=== PATIENT | male | born 1950 | race Caucasian/White ===

== ENCOUNTER 2017-12-16 02:49 | Inpatient (IN) ==
[2017-12-16] MEDS ORDERED: Levofloxacin 500 MG/100 ML 500 MG/100 ML BAG IVPB ONE (05:11)
[2017-12-16] MEDS ORDERED: D5% in Lactated Ringers 1,000 ML IVC SCH (05:15)
[2017-12-16] MEDS: Ondansetron 4 MG/2 ML VIAL IVP PRN ×2 (05:29→14:24)
[2017-12-16] MEDS: *HR* FentaNYL (PF) 100 MCG/2 ML VIAL IVP PRN ×3 (08:56→16:31)
--- NOTE | 2017-12-16 09:34 | General Surg History&Physical ---
Addendum entered and electronically signed by Chrissie Adhikari CNP 12/16/17 11: 32: 1. Incidental finding of renal mass vs cyst (Us recommended). We did place orders for renal ultrasound. 2. EKG SB with 1st degrees AV block, old inferior IN. Cardiology consult already placed. Management per cardiology Original Note: <Chrissie Adhikari - Last Filed: 12/16/17 10:02> Date of Encounter: 12/16/17 Time of Encounter: 09:34 Assessment and Plan (1) Acute appendicitis Current Visit: Yes Status: Acute The assessment and plan as outlined above was discussed with the patient and/or family members who expressed understanding and agreement. All questions were answered. His hospital course thus far has included laboratory studies which revealed a normal white blood cell count, mildly elevated lipase at 100, normal liver function, normal creatinine, elevated glucose, a CT of the abdomen and pelvis with no IV or oral contrast revealed mildly dilated appendix, mild periappendiceal fat stranding, no free air or fluid. Retroperitoneal lymph nodes are likely reactive, and by basilar atelectasis. His history and exam is consistent with acute appendicitis. We will plan for urgent surgical intervention in the next 24 to 48 hours for a laparoscopic appendectomy. Recommendations, risks, and benefits have been reviewed with the patient and he is agreeable to proceed. We will consult cardiology for preoperative risk stratification (and to establish care) in the setting of patient reports history of IN and is unable to quantify his YRN of activity. Maintain NPO, continue IV antibiotics, repeat a.m. labs, continue IV fluids Aggressive pulmonary toileting in the pre-and postoperative setting Qualifiers: Acute appendicitis type: unspecified acute appendicitis type Qualified Code (s): K35.80 - Unspecified acute appendicitis (2) Smoking history Current Visit: Yes Status: Acute The assessment and plan as outlined above was discussed with the patient and/or family members who expressed understanding and agreement. All questions were answered. Smoking cessation is strongly advised incentive spirometry 10 times Q hour while awake schedule duonebs and respiratory consult for aggressive pulmonary toileting in the pre-and postoperative setting (3) ASHD (arteriosclerotic heart disease) Current Visit: Yes Status: Acute The assessment and plan as outlined above was discussed with the patient and/or family members who expressed understanding and agreement. All questions were answered. EKG BNP CXR consult cardiology (4) Elevated glucose Current Visit: Yes Status: Acute The assessment and plan as outlined above was discussed with the patient and/or family members who expressed understanding and agreement. All questions were answered. NPO Q6 Accu check with sliding scale coverage hemoglobin A-1 C repeat a.m. labs (5) Productive cough Current Visit: Yes Status: Acute The assessment and plan as outlined above was discussed with the patient and/or family members who expressed understanding and agreement. All questions were answered. See assessment and plan above will obtain chest x-ray PA and LAT given fever and productive cough to rule out pneumonia History of Present Illness Chief complaint: Umbilical and RLQ pain HPI: Mr. Rodriguez is a 67 year old male who has a past medical history of HTN, IN ( unknown timing or location), DM, CKD, smoking 1ppd for 40 years, and a surgical history of cholecystectomy. He is somewhat of a poor historian, stating, "I haven't been to the doctor in 20 years. There is nothing wrong with me." He states he was previously told he had a heart attack, had high blood pressure, diabetes, and kidney disease, but "all these have went away and there's nothing wrong with me. He reports he takes a baby aspirin daily. 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 He states he is mostly sedentary at his job, said that at best, and is unable to quantify the amount of activity he is able to complete in a day. He presented on 12/16/2017 for a less than 24 hour history of abdominal discomfort around the belly button. He states that started at the bellybutton, felt sharp, and has since migrated to the right lower quadrant and the bellybutton. Pain is 7 out of 10 and has no alleviating factors. He states its aggravated by coughing or movement. He reports fevers with the Tmax of 100 , associated nausea but no vomiting, denies urinary signs or symptoms, denies changes in bowel habits, constipation, or diarrhea. He denies chest pain, shortness of breath, but endorses a productive cough with thick yellow sputum. He reports some shortness of breath with activity but is unable to state how much activity he is able to complete before he has shortness of breath. His hospital course thus far has included laboratory studies which revealed a normal white blood cell count, mildly elevated lipase at 100, normal liver function, normal creatinine, elevated glucose, a CT of the abdomen and pelvis with no IV or oral contrast revealed mildly dilated appendix, mild periappendiceal fat stranding, no free air or fluid. Retroperitoneal lymph nodes are likely reactive, and by basilar atelectasis. Past Med Surg Social Fam HX - Past Medical History Source: patient, old records reviewed Medical history: no medical history, COPD, hypertension, myocardial infarction, renal disease Psychiatric history: no psych history - Past Surgical History Surgical History: cholecystectomy - Social History Smoking Status: Current every day smoker Packs per day: 1 ppd 40 years Smokeless Tobacco Status: No Alcohol use: none Drug use: none Occupational status: employed Current living situation: Home - Independent Activity Level: Independent ambulation Recent Out of Country Travel Within the Last 8 Weeks: No Exposure or Possible Exposure to Illness During Travel: No - Family History Father Hx Family Cancer: Yes (colon) Medications and Allergies Aspirin 325 mg PO DAILY 12/16/17 [History] 3 Allergy/AdvReac Type Severity Reaction Status Date / Time Penicillins Allergy Hives Verified 12/16/17 09:22 Review of Systems All systems PM: reviewed and no additional remarkable complaints except as stated All systems PM: The remainder of the systems were reviewed and are negative General Surgery Exam Initial Vital Signs Temp Pulse Resp BP Pulse Ox 97.6 F 55 18 147/81 92 12/16/17 04:20 12/16/17 04:20 12/16/17 04:20 12/16/17 04:20 12/16/17 04:20 VITAL SIGNS: Reviewed. See [facility] GENERAL: In no apparent distress. HEENT: Normocephalic, atraumatic, pupils are equal and reactive, extraocular motions intact, oropharynx is pink and moist, there is no neck adenopathy or JVD noted. CHEST/RESPIRATORY: The thorax is free from signs of trauma. Lung sounds: decreased respiratory effort, decreased breath sounds, course breath sounds CARDIAC: distant heart tones, Regular rate and rhythm. Normal S1 and S2, without murmurs, gallops, or rubs. VASCULAR: No Edema. 2+ peripheral pulses. ABDOMEN: obese, soft, active bowel sounds, positive McBurney sign, positive tenderness in the periUmbilical area, negative obturator and psoas MUSCULOSKELETAL: Good range of motion of all major joints. Extremities without clubbing, cyanosis or edema. NEUROLOGIC EXAM: Alert and oriented x 3. Speech normal. Follows commands. PSYCHIATRIC: Mood normal. SKIN: No rash or lesions. Results - Labs All other labs normal. - Imaging CT scan - abdomen: report reviewed CT scan - pelvis: report reviewed <Barry Chew - Last Filed: 12/16/17 15:35> Date of Encounter: 12/16/17 History of Present Illness HPI: Mr. Rodriguez is a 67 year old male Review of Systems All systems PM: The remainder of the systems were reviewed and are negative General Surgery Exam Initial Vital Signs Temp Pulse Resp BP Pulse Ox 97.6 F 55 18 147/81 92 12/16/17 04:20 12/16/17 04:20 12/16/17 04:20 12/16/17 04:20 12/16/17 04:20 Results - Labs 12/16/17 11:01 Abnormal lab results Sodium 133 mEq/L (136-145) L 12/16/17 11:01 Glucose 121 mg/dL (70-105) H 12/16/17 11:01 Hemoglobin A1c 5.8 % (-5.6) H 12/16/17 11:00 Calculated Osmolality 276 (280-300) L 12/16/17 11:01 Calcium 8.5 mg/dL (8.6-10.3) L 12/16/17 11:01 B-Natriuretic Peptide 149 pg/mL (Less than 100) H 12/16/17 11:00 Diabetes panel 12/16/17 12/16/17 Range/Units 11:00 11:01 Sodium 133 L (136-145) mEq/L Potassium 4.1 (3.5-5.1) mEq/L Chloride 105 (98-107) mEq/L Carbon Dioxide 25 (23-29) mEq/L BUN 10 (8-23) mg/dL Creatinine 0.80 (0.70-1.30) mg/dL Glucose 121 H (70-105) mg/dL Hemoglobin A1c 5.8 H ( - 5.6) % Calcium 8.5 L (8.6-10.3) mg/dL Calcium panel 12/16/17 Range/Units 11:01 Calcium 8.5 L (8.6-10.3) mg/dL Pituitary panel 12/16/17 Range/Units 11:01 Sodium 133 L (136-145) mEq/L Potassium 4.1 (3.5-5.1) mEq/L Chloride 105 (98-107) mEq/L Carbon Dioxide 25 (23-29) mEq/L BUN 10 (8-23) mg/dL Creatinine 0.80 (0.70-1.30) mg/dL Glucose 121 H (70-105) mg/dL Calcium 8.5 L (8.6-10.3) mg/dL Adrenal panel 12/16/17 Range/Units 11:01 Sodium 133 L (136-145) mEq/L Potassium 4.1 (3.5-5.1) mEq/L Chloride 105 (98-107) mEq/L Carbon Dioxide 25 (23-29) mEq/L BUN 10 (8-23) mg/dL Creatinine 0.80 (0.70-1.30) mg/dL Glucose 121 H (70-105) mg/dL Calcium 8.5 L (8.6-10.3) mg/dL All other labs normal. - Attending Attestation I have personally seen and examined the patient. I have reviewed pertinent labs , imaging, progress notes, including this one. I agree with the above assessment and plan and wish to include the following... 67M with acute appendicitis; discussed with patient the steps of the procedure. He is familiar with laparosocpy, so he had no questions; Also with an incidental finding of a renal mass. Contacted urology and will plan for follow up with them when he presents to the office for follow;
[2017-12-16] MEDS ORDERED: OXYCODONE Oral CONC 10 MG/0.5 ML ORAL.SYG SL PRN ×2 (10:50)
[2017-12-16] MEDS ORDERED: *HR* Promethazine 25 MG/ML VIAL IVP PRN (10:50)
[2017-12-16] MEDS ORDERED: D5% in Water 1,000 ML IVC PRN (10:53)
[2017-12-16] MEDS ORDERED: Dextrose Gel 15 GM/37.5 ML TUBE PO PRN ×2 (10:53)
[2017-12-16] MEDS ORDERED: *HR* Dextrose 50 % in Water (Syg) 50 ML SYRINGE IVP PRN (10:53)
[2017-12-16] MEDS ORDERED: 0.9 % Sodium Chloride 1,000 ML IVC SCH (11:00)
[2017-12-16 11:23] LABS: Estimated Average Glucose 120 mg/dl; Hemoglobin A1C 5.8 %
[2017-12-16 11:34] LABS: BUN/Creatinine Ratio 13 (6-26); Blood Urea Nitrogen 10 mg/dL (8-23); Calcium 8.5 mg/dL (8.6-10.3); Carbon Dioxide 25 mEq/L (23-29); Chloride 105 mEq/L (98-107); Glucose 121 mg/dL (70-105); Osmolality,Calculated 276 (280-300); Potassium 4.1 mEq/L (3.5-5.1); Sodium 133 mEq/L (136-145); eGFR For African Americans > 60 (> 60); eGFR For Non-African Americans > 60 (> 60)
--- NOTE | 2017-12-16 12:23 | Cardiology Consult Note ---
<Aquiles Alfaro - Last Filed: 12/16/17 12:34> Date of Encounter: 12/16/17 Time of Encounter: 12:00 Assessment and Plan (1) Pre-operative cardiovascular examination Current Visit: Yes Status: Acute Planning for urgent appendectomy today for acute appendicitis. Unclear cardiac history. Reports NJ 30 years ago. No cardiac intervention at that time. No cardiology f/u. Denies recent cardiac symptoms. C/o severe abdominal pain. EKG shows NSR with no acute T/ST changes. He can complete 4 mets of activity without symptoms. Discussed with Dr. Felipe. Ideally we would do further non-invasive testing prior to a non urgent surgery. Since acute appendicitis requires emergent intervention no further testing will be completed per guidelines. He is moderate risk for procedure. (2) Acute appendicitis Current Visit: Yes Status: Acute Qualifiers: Acute appendicitis type: unspecified acute appendicitis type Qualified Code (s): K35.80 - Unspecified acute appendicitis Discussion w patient/family: The assessment and plan as outlined above was discussed with the patient and/or family members who expressed understanding and agreement. All questions were answered. Thank you for involving us in the care of your patient. Please call with any questions. History of Present Illness Consult date: 12/16/17 Requesting physician: Chrissie Adhikari Consult reason: pre-operative cardiovascular risk Chief complaint: abdominal pain History of present illness: Mr. Rodriguez is a 67 year old male with history of tobacco abuse, COPD, and PVD who presents with c/o severe abdominal pain. He was found to have acute appendicitis. Cardiology consulted for pre-operative cardiovascular risk stratification prior to appendectomy . Patient is a poor historian. He states he had a [place] 30 years ago due to a stomach ulcer. Denies history of LHC or cardiac stents. On my exam he denies chest pain or SOB. He can complete 4 mets of activity without symptoms. C/o severe abdominal pain. Past Med Surg Social Fam HX - Past Medical History Medical history: no medical history, COPD, hypertension, myocardial infarction, renal disease Psychiatric history: no psych history - Past Surgical History Surgical History: cholecystectomy - Social History Smoking Status: Current every day smoker Packs per day: 1 ppd 40 years Smokeless Tobacco Status: No Alcohol use: none Drug use: none - Family History Father Hx Family Cancer: Yes (colon) Medications and Allergies Aspirin 325 mg PO DAILY 12/16/17 [History] 3 Allergy/AdvReac Type Severity Reaction Status Date / Time Penicillins Allergy Hives Verified 12/16/17 09:22 All Systems Review: The remainder of the systems were reviewed and are negative Physical Examination Vital Signs, Last 4 Hours Temp Pulse Resp BP Pulse Ox 12/16/17 11:22 97.3 F L 50 18 134/80 96 General: Conversant HEENT: Atraumatic, Normocephaly, Mucus Membranes Moist Neck: No JVD, Normal carotid pulses Cardiac: Reg Rate and Rhythm, Normal S1 and S2, No Murmur Lungs: Normal Breath Sounds, No Wheeze, Rales, Rhonchi Neuro: Alert and responsive, No focal deficits noted Abdomen: Other (Tender to palpation) Skin: No rashes noted on visualized skin Musculoskeletal: No Chest Wall Tenderness Extremities: No Clubbing, Other (BLE with brownish discoloration. Compression stocking intact. Trace edema. ) Results 12/16/17 11:01 Lab Results 12/16/17 12/16/17 11:00 11:01 Sodium 133 L Potassium 4.1 Chloride 105 Carbon Dioxide 25 BUN 10 Creatinine 0.80 Glucose 121 H Calcium 8.5 L B-Natriuretic Peptide 149 H - EKG Interpretation EKG results cardiology: personally reviewed Consult Discharge Plan - Plan Referrals: NONE,PCP [Primary Care Provider] - <Milana Felipe - Last Filed: 12/16/17 14:48> Date of Encounter: 12/16/17 - Attending Attestation I have personally performed a face to face evaluation on this patient. I have reviewed and agree with the care plan. History and Exam by me shows: 67 YOM with hx of NJ 30 years ago presents for belly pain to have an urgent appendectomy today. Cardiac clearance was requested. Patient denies any chest pain but does admit to [facility] at baseline. EKG non specific changes and apparently he states can achieve 4 METS. Due to emergent nature of presentation and need for emergent surgery no further cardiac testing is recommended at this time. If procedure is non urgent a stress test and echo would be ideal. Assessment and Plan Discussion w patient/family: The assessment and plan as outlined above was discussed with the patient and/or family members who expressed understanding and agreement. All questions were answered. Thank you for involving us in the care of your patient. Please call with any questions. History of Present Illness History of present illness: Mr. Rodriguez is a 67 year old male All Systems Review: The remainder of the systems were reviewed and are negative Physical Examination Vital Signs, Last 4 Hours Temp Pulse Resp BP Pulse Ox 12/16/17 11:22 97.3 F L 50 18 134/80 96 Results 12/16/17 11:01 Lab Results 12/16/17 12/16/17 11:00 11:01 Sodium 133 L Potassium 4.1 Chloride 105 Carbon Dioxide 25 BUN 10 Creatinine 0.80 Glucose 121 H Calcium 8.5 L B-Natriuretic Peptide 149 H
[2017-12-16] MEDS: MetroNIDAZOLE 500 MG/100 ML 500 MG/100 ML BAG IVPB SCH ×2 (12:30→19:54)
[2017-12-16] MEDS: Insulin LISPRO 300 UNITS/3 ML VIAL SQ SCH ×2 (12:31→17:16)
[2017-12-16] MEDS: Ipratropium/Albuterol Neb 3 ML IH SCH ×3 (13:27→20:37)
--- NOTE | 2017-12-16 16:14 | Electrocardiograph Report ---
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
--- NOTE | 2017-12-16 20:14 | Anesthesia Evaluation PreOp ---
Date of Encounter: 12/16/17 Time of Encounter: 21:01 - Past History Planned Operation: Laparoscopic Appendectomy Cardiac History: LA, HTN, Other (Pt apaprently able to achieve 4 METS) Pulmonary History: Smoker, COPD PARCEL POST CLERK History: Denies Any Significant HX Other Medical History: Renal (CKD, Renal mass), Diabetes Type II, Other (Obesity ) Anesthesia History: No Prior Anesthetic Complications, Past Anesthesia (GB) Alcohol Use: none Drug use: none Medications and Allergies Aspirin 325 mg PO DAILY 12/16/17 [History] 3 Allergy/AdvReac Type Severity Reaction Status Date / Time Penicillins Allergy Hives Verified 12/16/17 09:22 - Meds/Allergy Pre-op Review Medications Reviewed: Yes Allergies Reviewed: Yes Anesthesia Results - Labs 12/16/17 11:01 Laboratory Tests 12/16/17 12/16/17 12/16/17 01:50 01:50 11:00 Hgb 14.1 Hct 42.5 Plt Count 179 Calcium Total Bilirubin 0.7 AST 19 ALT 14 Alkaline Phosphatase 59 B-Natriuretic Peptide 149 H Serum Total Protein 7.6 Albumin 3.8 Globulin 3.8 H Amylase 37 Lipase 100 H 12/16/17 11:01 Hgb Hct Plt Count Calcium 8.5 L Total Bilirubin AST ALT Alkaline Phosphatase B-Natriuretic Peptide Serum Total Protein Albumin Globulin Amylase Lipase - Imaging EKG: report reviewed (SB) Anesthesia Exam Vital Signs/O2 Sat, Most Current Temp Pulse Resp BP Pulse Ox 100.2 F H 69 18 126/72 90 12/16/17 19:31 12/16/17 19:31 12/16/17 19:31 12/16/17 19:31 12/16/17 19:31 Height: 1.8 m Weight: 122 kg - BMI 38 - HEENT Mallampati: III Teeth: Edentulous Oral Opening: Greater than 3 - PARCEL POST CLERK LOC: Oriented, Uncooperative - Cardiac Rhythm: Regular - Pulmonary Breath Sounds: bilateral Clear Anesthesia Assess/Plan ASA Score: 4, E Modified [place] Scale for Level of Consciousness: Drowsy, but responsive to commands Anesthetic Plan: General Monitoring Plan: Standard Monitors Recovery Plan: PACU Anes Supervising Prov Stmt: Patient informed and consented. Risks, benefits, and alternatives discussed. Patient wishes to proceed.
[2017-12-16] MEDS ORDERED: *HR* Rocuronium Bromide 50 MG/5 ML VIAL ONE ×2 (21:09→23:50)
[2017-12-16] MEDS ORDERED: Lidocaine -MPF 2% 2 ML VIAL ONE (21:09)
[2017-12-16] MEDS ORDERED: Ondansetron 4 MG/2 ML VIAL ONE (21:09)
[2017-12-16] MEDS ORDERED: *HR* Succinylcholine 200 MG/10 ML VIAL IVP ONE (21:09)
[2017-12-16] MEDS ORDERED: *HR* FentaNYL (PF) 100 MCG/2 ML VIAL ONE (21:09)
[2017-12-16] MEDS ORDERED: Dexamethasone 4 MG/ML VIAL ONE (21:09)
[2017-12-16] MEDS ORDERED: *HR* Propofol 200 MG/20 ML VIAL IVP ONE (21:09)
[2017-12-16] MEDS ORDERED: *HR* PHENYLEPHRINE 1,000 MCG/10 ML SYRINGE IVP ONE (21:10)
[2017-12-16] MEDS ORDERED: Acetaminophen IV 1,000 MG/100 ML INFUS..BTL ONE (21:25)
--- NOTE | 2017-12-16 22:05 | Anesthesia Evaluation Post Op ---
Date of Encounter: 12/17/17 Time of Encounter: 05:10 - Vital Signs Vital Signs: Vital Signs/O2 Sat, Most Current Temp Pulse Resp BP Pulse Ox 99.5 F 51 9 100/52 96 12/17/17 02:50 12/17/17 04:40 12/17/17 05:01 12/17/17 04:40 12/17/17 05:01 Laboratory Tests 12/17/17 02:53 ABG pH 7.34 ABG pCO2 45 ABG pO2 59 L ABG HCO3 24 ABG Total CO2 26 ABG O2 Saturation 88 L ABG Base Excess -2 O2 Delivery Device Oxy Mask Inspired O2 6.0 - Lungs Lungs: Clear Ascult./Percussion - Airway Airway: Non-obstructed (CPAP) - Cardiovascular Regular Rate - Mental Status Mental Status: Asleep with brisk response to light stimulation - Nausea Vomiting Nausea Vomiting: Not Present Notes: Patient initially sedate, but arousable. Concern for hypoventilation and hypercapnia. ABG showed mild respiratory acidosis, but more concerning for hypoxemia. Patient placed on CPAP, and will be admitted to step down unit, given other co-morbidities. Dr. Chew aware. While awaiting bed placement, patient is more awake. - Discharge PostOp Status: Transfer Patient to floor
[2017-12-16] MEDS ORDERED: *HR* HYDROmorphone (PF) 1 MG/ML SYRINGE IVP PRN (22:29)
[2017-12-16] MEDS ORDERED: Ringers Solution, Lactated 1,000 ML IVC SCH (22:30)
[2017-12-16] MEDS ORDERED: *HR* Morphine 10 MG/ML VIAL ONE (23:30)
[2017-12-16] MEDS ORDERED: Ketorolac 30 MG/ML VIAL ONE (23:50)
[2017-12-17] MEDS: Ipratropium/Albuterol Neb 3 ML IH SCH ×7 (00:23→23:58)
[2017-12-17] MEDS ORDERED: *HR* Nalbuphine 20 MG/ML AMPUL ONE (01:31)
--- NOTE | 2017-12-17 02:01 | Operative Note ---
Date of procedure: 12/17/17 Pre-op diagnosis: acute appendicitis Post-op diagnosis: same Procedure: laparoscopic ileocetomy Implants: none Complications: none Anesthesia: GETA Local Anesthetics: 0.5% Sensorcaine HCL SubQ (cc) Surgeon: Barry Chew Was there an embalmer assistant present: No Freight Coordinator Other: emiliano carrera Estimated blood loss (cc): 150 Specimen: terminal ileum, cecu, proximal ascending colon Condition: stable Disposition: PACU Procedure in Detail: The patient was brought into the operating room suite. The patient was placed in the supine position. Mechanical DVT prophylaxis was initiated. The patient underwent smooth induction of general endotracheal anesthesia. The patient was prepped and draped in the usual fashion. Preoperative antibiotics were given. A timeout was held identifying the correct patient, pathology, and procedure. Everyone was in agreement and we began a procedure. Incision to Mesenteric Window I started by creating a supraumbilical incision and via open Clark technique entered into the abdomen. I then used a Vicryl suture on a UR 6 needle in a [id number] fashion to reapproximate but not close the fascia. I then inserted the 10 trocar followed by the camera to visualize the intraabdominal cavity. I then created a 5 mm incision suprapubically and inserted the 5 mm trocar under direct visualization. Roughly 1 handbreadth lateral to the umbilical incision I created another 5 mm incision and inserted another 5 mm trocar under direct visualization. I then inserted the nontraumatic instruments into the 5 mm ports and began the procedure. I was able to identify the tinea coli coalescing at the base of the cecum. however, I was not able to clearly identify the appendix. I did notice what appeared to be intramural edema and, upon further inspection the cecum and terminal ileum were adhered to the abdominal wall as well as to the surround small bowel. After lysing adhesions, it was clear that the appendix was completely necrotic to its base. in addition I was not able to even separate the appendix completely free from the cecum. I did not feel that the appendiceal stump would hold staplers, so the decision was to perform an ileocectomy. I then continued mobilizing along the white line of Toldt distally toward the hepatic flexure and along the proximal transverse colon. Should be stated that i created two more 5mm incisions: one along the right side of the abdomen and one in the epigastric region to help with mobilizatio and allowing for traction and countertraction. I also mobilized more proximally along the terminal ileum, lysing interloop adhesions and adhesions between the terminal ileum and the distal sigmoid colon/ proximal rectum. I mobilized laterally toward the midline until i was able to visualize the duodenum. I was careful not to injure the duodenum. Furthermore , there were adhesions of the transverse colon to the liver bed where his gallbladder used to be. I mobilized as much as I could safely without tearing the liver capsule. After adequate mobilization, I extended the supraumbilical incision to enter into the abdomen and delivered the specimen through the wound. I identified a segment of terminal ileum that was not affected by the inflammatory process and stapled proximally at this location. I then chose a location along the ascending colon distal to the inflammatory mass and stapled. I used the VICENTE stapler blue load for the bowel. I then used the Impact machine to ligate the mesenteric vessels. I then delivered the specimen. I then used the curved warren to open the proximal and distal segments of bowel along the corner and used the VICENTE stapler to create a side to side anastamosis and the TA stapler to close off the opening. I then closed the midline using 1-0 PDS suture in an interruped figure of 8 fashion. I used approximately 8 sutures. I then used 3-0 vicryl to reappoximate the deep dermal layer and used 4-0 monocyrl in a running subcuticular fashion to close the midline incision. I used it in an interrupted fashion to close the 5mm incisions. I did use local anesthetic for all incisions. The patient tolerated the procedure well and was escorted to PACU in stable condition.
[2017-12-17] MEDS: Insulin LISPRO 300 UNITS/3 ML VIAL SQ SCH ×3 (06:07→18:22)
[2017-12-17] MEDS: MetroNIDAZOLE 500 MG/100 ML 500 MG/100 ML BAG IVPB SCH ×3 (06:07→20:50)
[2017-12-17] MEDS ORDERED: Naloxone 0.4 MG/ML INJ IVP PRN (06:14)
[2017-12-17] MEDS ORDERED: *HR* Promethazine 25 MG/ML VIAL IVP PRN (06:14)
[2017-12-17] MEDS ORDERED: Ondansetron 4 MG/2 ML VIAL IVP PRN (06:14)
[2017-12-17] MEDS ORDERED: D5% in Lactated Ringers 1,000 ML IVC SCH (06:14)
[2017-12-17] MEDS ORDERED: *HR* Dextrose 50 % in Water (Syg) 50 ML SYRINGE IVP PRN (06:14)
[2017-12-17] MEDS ORDERED: Dextrose Gel 15 GM/37.5 ML TUBE PO PRN ×2 (06:14)
[2017-12-17] MEDS ORDERED: D5% in Water 1,000 ML IVC PRN (06:14)
[2017-12-17] MEDS ORDERED: *HR* HYDROmorphone 20 MG/20 ML PCA IVC PRN (06:14)
[2017-12-17 06:55] LABS: Basophils % 0.1 %; Hematocrit 39.5 % (37.5-50.1); Hemoglobin 12.8 g/dL (12.9-16.9); Immature Granulocytes % 0.3 % (0-4); Lymphocytes # 0.4 K/mcL (0.6-4.6); Lymphocytes % 3.5 %; Mean Corpuscular HGB Conc 32.4 g/dL (31.6-35.5); Mean Corpuscular Hemoglobin 29.8 pg (28.0-33.3); Mean Corpuscular Volume 91.9 fL (83.0-100.0); Mean Platelet Volume 9.5 fL (9.4-12.4); Monocytes # 0.5 K/mcL (0.0-1.3); Neutrophils # 10.8 K/mcL (1.6-8.9); Platelet Count 170 K/mcL (140-400); Red Cell Distribution Width 15.8 % (11.5-14.5); Segmented Neutrophils % 92.1 %
[2017-12-17] MEDS ORDERED: Pantoprazole 40 MG VIAL IVP SCH (09:00)
[2017-12-17] MEDS: Levofloxacin 750 MG/150 ML 750 MG/150 ML BAG IVPB SCH (09:08)
[2017-12-17] MEDS: Pantoprazole 40 MG VIAL IVP SCH (09:08)
[2017-12-17] MEDS ORDERED: OXYCODONE Oral CONC 10 MG/0.5 ML ORAL.SYG SL PRN ×2 (09:16)
[2017-12-17] MEDS ORDERED: Acetaminophen IV 1,000 MG/100 ML INFUS..BTL IVPB ONE (09:16)
[2017-12-17] MEDS ORDERED: Isovue-370 500 ML INFUS..BTL IV ONE (09:29)
[2017-12-17] MEDS ORDERED: *HR* OxyCODONE/APAP 5/325 TABLET PO PRN (09:34)
[2017-12-17] MEDS ORDERED: Ondansetron ODT 4 MG TAB.RAPDIS SL PRN (09:34)
--- NOTE | 2017-12-17 09:37 | General Surgery Progress Note ---
<OnofreChrissie Henrry - Last Filed: 12/17/17 09:32> Date of Encounter: 12/17/17 Time of Encounter: 09:32 - Assessment and Plan (1) Acute appendicitis Current Visit: Yes Status: Resolved Date of procedure: 12/17/17 Pre-op diagnosis: acute appendicitis Post-op diagnosis: same Procedure: laparoscopic ileocetomy POD #0 as above (surgery completed approximately 0400 this a.m.); pathology pending Plan: continue supportive care and discomfort management scheduled Ofirmev times 1 now PRN Percocet PRN sublingual oxycodone (for moderate and severe pain) clear liquid diet aggressive pulmonary toileting continue G.I. and DVT prophylaxis out of bed to chair for all trays ambulate and halls at least TID; if patient is unable to get out of bed with assistance can consult PT/OT to eval and treat continue IV antibiotics closely monitor for urinary output given that he is approximately only 6 hours post. He has not urinated at this point. Qualifiers: Acute appendicitis type: unspecified acute appendicitis type Qualified Code (s): K35.80 - Unspecified acute appendicitis (2) Smoking history Current Visit: Yes Status: Acute Smoking cessation advised aggressive pulmonary toileting scheduled respiratory treatments titrate oxygen to keep stats greater than 92% (3) ASHD (arteriosclerotic heart disease) Current Visit: Yes Status: Acute Cardiology is following. He was moderate risk for urgent procedure. Per cardiology note ideally further noninvasive testing would be recommended. I will follow-up with cardiology to see if they plan to complete this testing during this hospital admission i.e. echocardiogram. BNP was slightly elevated yesterday, will closely monitor fluid status Will continue to monitor (4) Elevated glucose Current Visit: Yes Status: Acute Hemoglobin A-1C 5 .8 will continue to monitor (5) Productive cough Current Visit: Yes Status: Acute CXR 12/16/2017 nonacute continue aggressive pulmonary toileting and supplemental oxygen therapy see assessment and plan above (6) Renal mass Current Visit: Yes Status: Acute CT of the abdomen and pelvis without contrast noted right renal mass versus hyperdense cyst, renal ultrasound was recommended and completed which noted solid right lower pole renal lesion measuring 3.4 cm; renal cell carcinoma until proven otherwise. Dr. Chew did speak with urology yesterday who recommended a repeat CT of the abdomen and pelvis with contrast. This is been ordered. Further recommendations pending Subjective Patient reports: still having pain, no flatus, afebrile, other (Drowsy) Objective Vital Signs - Last 8 Hours Temp Pulse Resp BP Pulse Ox 12/17/17 09:20 91 12/17/17 08:05 20 93 12/17/17 07:37 50 20 118/62 93 12/17/17 07:35 97.9 F 50 15 118/62 94 12/17/17 05:10 68 16 118/59 93 12/17/17 05:01 9 96 12/17/17 04:40 51 10 100/52 96 12/17/17 04:10 52 10 95/50 95 12/17/17 03:50 53 10 94/51 94 12/17/17 03:40 10 94 12/17/17 03:35 63 16 99/54 92 12/17/17 03:20 57 16 96/50 92 12/17/17 03:05 58 16 101/52 92 12/17/17 02:50 99.5 F 57 16 96/54 92 12/17/17 02:34 64 16 111/57 92 12/17/17 02:24 66 20 111/57 93 12/17/17 02:14 62 20 105/56 93 12/17/17 02:04 62 16 101/51 92 12/17/17 01:54 65 20 101/54 92 12/17/17 01:44 100.2 F H 63 24 122/59 93 Intake and Output 12/16/17 12/17/17 12/17/17 23:59 07:59 15:59 Output Total 150 / 150 Balance -150 / -150 Output: Estimated Blood Loss 150 / 150 Other: Weight 125 kg Blood Glucose* 87 179 Patient Weight 12/17/17 23:59 Weight 125 kg VITAL SIGNS: Reviewed. See [facility] GENERAL: In no apparent distress. HEENT: Normocephalic, atraumatic, pupils are equal and reactive, extraocular motions intact, oropharynx is pink and moist, there is no neck adenopathy or JVD noted. CHEST/RESPIRATORY: The thorax is free from signs of trauma. Lung sounds: decreased breath sounds, decreased respiratory effort, course crackles in the bilateral bases CARDIAC: bradycardia great, first-degree AV block noted, 3/6 systolic ejection murmur at the right sternal border noted. No gallops or rubs VASCULAR: No Edema. 2+ peripheral pulses. ABDOMEN: soft, expected postoperative tenderness, absent bowel sounds INCISION: Surgical incision is clean, dry, and intact with some mild reactionary erythema. There are no signs of cellulitis or infection noted. WOUNDS/DRAINS: N/A MUSCULOSKELETAL: Good range of motion of all major joints. Extremities without clubbing, cyanosis or edema. NEUROLOGIC EXAM: drowsy and oriented x 3. Speech normal (edentulous). Follows commands. PSYCHIATRIC: Mood normal. SKIN: No rash or lesions. - Labs 12/17/17 06:16 12/16/17 11:01 Diabetes panel 12/16/17 12/16/17 Range/Units 11:00 11:01 Sodium 133 L (136-145) mEq/L Potassium 4.1 (3.5-5.1) mEq/L Chloride 105 (98-107) mEq/L Carbon Dioxide 25 (23-29) mEq/L BUN 10 (8-23) mg/dL Creatinine 0.80 (0.70-1.30) mg/dL Glucose 121 H (70-105) mg/dL Hemoglobin A1c 5.8 H ( - 5.6) % Calcium 8.5 L (8.6-10.3) mg/dL Calcium panel 12/16/17 Range/Units 11:01 Calcium 8.5 L (8.6-10.3) mg/dL Pituitary panel 12/16/17 Range/Units 11:01 Sodium 133 L (136-145) mEq/L Potassium 4.1 (3.5-5.1) mEq/L Chloride 105 (98-107) mEq/L Carbon Dioxide 25 (23-29) mEq/L BUN 10 (8-23) mg/dL Creatinine 0.80 (0.70-1.30) mg/dL Glucose 121 H (70-105) mg/dL Calcium 8.5 L (8.6-10.3) mg/dL Adrenal panel 12/16/17 Range/Units 11:01 Sodium 133 L (136-145) mEq/L Potassium 4.1 (3.5-5.1) mEq/L Chloride 105 (98-107) mEq/L Carbon Dioxide 25 (23-29) mEq/L BUN 10 (8-23) mg/dL Creatinine 0.80 (0.70-1.30) mg/dL Glucose 121 H (70-105) mg/dL Calcium 8.5 L (8.6-10.3) mg/dL - VTE Documentation of Mechanical Device: Intermittent pneumatic compression device Consult Discharge Plan - Plan Referrals: Renetta Nolen [employer]KE RO[employer] WORKER [Advanced Practice Nurse] - 12/25/17 1:00 pm <Barry Chew - Last Filed: 12/17/17 12:59> Date of Encounter: 12/17/17 Objective Vital Signs - Last 8 Hours Temp Pulse Resp BP Pulse Ox 12/17/17 11:42 97.9 F 54 20 115/60 93 12/17/17 11:07 56 22 119/66 93 12/17/17 10:54 54 20 110/67 93 12/17/17 10:50 93 12/17/17 09:56 53 18 106/58 94 12/17/17 09:20 91 12/17/17 08:55 49 22 125/64 94 12/17/17 08:05 20 93 12/17/17 07:37 50 20 118/62 93 12/17/17 07:35 97.9 F 50 15 118/62 94 12/17/17 05:10 68 16 118/59 93 12/17/17 05:01 9 96 Intake and Output 12/16/17 12/17/17 12/17/17 23:59 07:59 15:59 Output Total 150 / 150 Balance -150 / -150 Output: Estimated Blood Loss 150 / 150 Other: Weight 125 kg Blood Glucose* 87 179 171 Patient Weight 12/17/17 23:59 Weight 125 kg - Labs 12/17/17 06:16 12/17/17 09:47 Diabetes panel 12/17/17 Range/Units 09:47 Sodium 137 (136-145) mEq/L Potassium 4.5 (3.5-5.1) mEq/L Chloride 107 (98-107) mEq/L Carbon Dioxide 23 (23-29) mEq/L BUN 10 (8-23) mg/dL Creatinine 0.98 (0.70-1.30) mg/dL Glucose 199 H (70-105) mg/dL Calcium 8.0 L (8.6-10.3) mg/dL Calcium panel 12/17/17 Range/Units 09:47 Calcium 8.0 L (8.6-10.3) mg/dL Phosphorus 3.4 (2.7-4.5) mg/dL Pituitary panel 12/17/17 Range/Units 09:47 Sodium 137 (136-145) mEq/L Potassium 4.5 (3.5-5.1) mEq/L Chloride 107 (98-107) mEq/L Carbon Dioxide 23 (23-29) mEq/L BUN 10 (8-23) mg/dL Creatinine 0.98 (0.70-1.30) mg/dL Glucose 199 H (70-105) mg/dL Calcium 8.0 L (8.6-10.3) mg/dL Adrenal panel 12/17/17 Range/Units 09:47 Sodium 137 (136-145) mEq/L Potassium 4.5 (3.5-5.1) mEq/L Chloride 107 (98-107) mEq/L Carbon Dioxide 23 (23-29) mEq/L BUN 10 (8-23) mg/dL Creatinine 0.98 (0.70-1.30) mg/dL Glucose 199 H (70-105) mg/dL Calcium 8.0 L (8.6-10.3) mg/dL - Attending Attestation have personally seen and examined the patient. I have reviewed pertinent labs , imaging, progress notes, including this one. I agree with the above assessment and plan and wish to include the following... 67M with acute appendicitis now s/p lap ileocecal resection. Feeling better, reports no pain; cont abx, cont with ice chips, pulm toileting; will plan on follow up with urology for renal mass; cont supportive care; will await continued bowel function prior to starting a diet
[2017-12-17 10:25] LABS: BUN/Creatinine Ratio 10 (6-26); Blood Urea Nitrogen 10 mg/dL (8-23); Carbon Dioxide 23 mEq/L (23-29); Chloride 107 mEq/L (98-107); Glucose 199 mg/dL (70-105); Magnesium 1.9 mg/dL (1.6-2.6); Osmolality,Calculated 289 (280-300); Phosphorous 3.4 mg/dL (2.7-4.5); Potassium 4.5 mEq/L (3.5-5.1); Sodium 137 mEq/L (136-145); eGFR For African Americans > 60 (> 60); eGFR For Non-African Americans > 60 (> 60)
[2017-12-17 10:34] LABS: Carcinoembryonic Antigen 0.8 ng/mL (Less than 5.0)
[2017-12-17] MEDS: 0.9 % Sodium Chloride 1,000 ML IVC SCH (12:02)
--- NOTE | 2017-12-17 16:55 | Urology - Consult Note ---
Date of Encounter: 12/17/17 Time of Encounter: 16:52 - Assessment and Plan (1) Renal mass Current Visit: Yes Status: Acute Assessment and plan: Patient's right renal mass is concerning for renal cell carcinoma. Based on CT criteria this has roughly an 80% chance of being a malignant mass. I will have the patient scheduled to see me in follow-up in [place] in 1-2 weeks. This will allow the patient to recover from recent surgery before discussing next step. I discussed briefly the potential next step regarding the renal mass. He states that at this time he would rather discuss it at follow-up. Patient may require either right nephrectomy or right partial nephrectomy. Patient is scheduled January 01 at 1 PM in my office in [place]. (2) Smoking history Current Visit: Yes Status: Acute Assessment and plan: Smoking is a known risk factor for kidney cancer. I did instruct the patient of the benefits regarding quitting smoking. Urology CN:HPI Consult date: 12/17/17 Reason for consult Urology: Other (right renal mass) Requesting physician: Barry Chew History of present illness: Sukhdev is a 67-year-old male with a history of recent laparoscopic ileocecectomy. Patient is recovering on the floor. Patient underwent a CT scan recently which revealed a likely lower pole right renal mass. Difficult to completely discern whether this is one or 2 separate masses. Patient denies any right-sided flank pain. Patient has had multiple CT scans in the past and on review there is some concern that this mass is been there for some time. Difficult to completely tell this secondary to lack of IV contrast. Patient is in a significant amount of discomfort at this time. Patient also has a history of a biliary stent. Past Med Surg Social Fam HX - Past Medical History Medical history: no medical history, COPD, hypertension, myocardial infarction, renal disease Psychiatric history: no psych history - Past Surgical History Surgical History: cholecystectomy - Social History Smoking Status: Current every day smoker Packs per day: 1 ppd 40 years Smokeless Tobacco Status: No Alcohol use: none Drug use: none - Family History Father Hx Family Cancer: Yes (colon) Medications and Allergies Aspirin 325 mg PO DAILY 12/16/17 [History] 3 Allergy/AdvReac Type Severity Reaction Status Date / Time Penicillins Allergy Hives Verified 12/16/17 09:22 Review of Systems - Constitutional no chills, no fever(s) - EENT Nose, mouth and throat: no dizziness, no throat swelling - Cardiovascular no chest pain, no dyspnea - Respiratory no cough, no dyspnea - Gastrointestinal abdominal pain, no nausea, no vomiting - Genitourinary as per HPI - Musculoskeletal no back pain, no muscle weakness - Integumentary no erythema, no swelling - Neurological no confusion, no sensory deficit, no weakness - Psychiatric no anxiety, no confusion - Hematologic/Lymphatic no easy bleeding, no lymphadenopathy - Allergic/Immunologic no throat swelling, no wheezing Exam Initial Vital Signs Temp Pulse Resp BP Pulse Ox 97.6 F 55 18 147/81 92 12/16/17 04:20 12/16/17 04:20 12/16/17 04:20 12/16/17 04:20 12/16/17 04:20 General/Neuological: alert and oriented x 3 Eyes: normal pupils, non-icteric Neck: no lymphadenopathy noted, supple to touch Cardiovascular: RRR, no murmurs Respiratory: normal respiratory effort, clear bilaterally ABD: soft, nontender, incisions healing well, positive bowel sounds, no masses detected Back: no pain on percussion bilaterally : normal phallus, normal scrotum, testicles and epididymides normal, urethral meatus normal. Skin: no rashes noted Musculoskeletal: normal gait, FROMx4 Urology Results - Labs 12/17/17 06:16 12/17/17 09:47 Abnormal lab results WBC 11.7 K/mcL (4.3-11.1) H 12/17/17 06:16 Hgb 12.8 g/dL (12.9-16.9) L 12/17/17 06:16 RDW 15.8 % (11.5-14.5) H 12/17/17 06:16 Neutrophils # 10.8 K/mcL (1.6-8.9) H 12/17/17 06:16 Lymphocytes # 0.4 K/mcL (0.6-4.6) L 12/17/17 06:16 Glucose 199 mg/dL (70-105) H 12/17/17 09:47 POC Glucose 121 mg/dL (70-99) H 12/17/17 15:10 Hemoglobin A1c 5.8 % (-5.6) H 12/16/17 11:00 Calcium 8.0 mg/dL (8.6-10.3) L 12/17/17 09:47 B-Natriuretic Peptide 149 pg/mL (Less than 100) H 12/16/17 11:00 Diabetes panel 12/17/17 Range/Units 09:47 Sodium 137 (136-145) mEq/L Potassium 4.5 (3.5-5.1) mEq/L Chloride 107 (98-107) mEq/L Carbon Dioxide 23 (23-29) mEq/L BUN 10 (8-23) mg/dL Creatinine 0.98 (0.70-1.30) mg/dL Glucose 199 H (70-105) mg/dL Calcium 8.0 L (8.6-10.3) mg/dL Calcium panel 12/17/17 Range/Units 09:47 Calcium 8.0 L (8.6-10.3) mg/dL Phosphorus 3.4 (2.7-4.5) mg/dL Pituitary panel 12/17/17 Range/Units 09:47 Sodium 137 (136-145) mEq/L Potassium 4.5 (3.5-5.1) mEq/L Chloride 107 (98-107) mEq/L Carbon Dioxide 23 (23-29) mEq/L BUN 10 (8-23) mg/dL Creatinine 0.98 (0.70-1.30) mg/dL Glucose 199 H (70-105) mg/dL Calcium 8.0 L (8.6-10.3) mg/dL Adrenal panel 12/17/17 Range/Units 09:47 Sodium 137 (136-145) mEq/L Potassium 4.5 (3.5-5.1) mEq/L Chloride 107 (98-107) mEq/L Carbon Dioxide 23 (23-29) mEq/L BUN 10 (8-23) mg/dL Creatinine 0.98 (0.70-1.30) mg/dL Glucose 199 H (70-105) mg/dL Calcium 8.0 L (8.6-10.3) mg/dL All other labs normal. - Imaging CT scan - abdomen: image reviewed CT scan - pelvis: image reviewed US - abdomen: image reviewed (I have personally reviewed all the patient's abdominal imaging and agree with the diagnosis of a right lower pole 3.4 cm renal mass.) Consult Discharge Plan - Plan Referrals: Renetta Nolen, RAILROAD WORKER [Advanced Practice Nurse] - 12/25/17 1:00 pm
[2017-12-18] MEDS: Insulin LISPRO 300 UNITS/3 ML VIAL SQ SCH ×4 (00:08→17:05)
[2017-12-18] MEDS: 0.9 % Sodium Chloride 1,000 ML IVC SCH (00:20)
[2017-12-18] MEDS: *HR* Enoxaparin 40 MG/0.4 ML SYRINGE SQ SCH (00:20)
[2017-12-18] MEDS: Ipratropium/Albuterol Neb 3 ML IH SCH ×6 (03:59→23:34)
[2017-12-18] MEDS: Pantoprazole 40 MG VIAL IVP SCH (04:09)
[2017-12-18] MEDS: MetroNIDAZOLE 500 MG/100 ML 500 MG/100 ML BAG IVPB SCH ×3 (04:09→20:16)
[2017-12-18 04:30] LABS: Basophils % 0.1 %; Hematocrit 35.9 % (37.5-50.1); Hemoglobin 11.6 g/dL (12.9-16.9); Immature Granulocytes % 0.3 % (0-4); Lymphocytes # 0.7 K/mcL (0.6-4.6); Lymphocytes % 7.9 %; Mean Corpuscular HGB Conc 32.3 g/dL (31.6-35.5); Mean Corpuscular Hemoglobin 29.5 pg (28.0-33.3); Mean Corpuscular Volume 91.3 fL (83.0-100.0); Mean Platelet Volume 9.4 fL (9.4-12.4); Monocytes # 0.6 K/mcL (0.0-1.3); Monocytes % 6.3 %; Neutrophils # 7.9 K/mcL (1.6-8.9); Platelet Count 150 K/mcL (140-400); Red Blood Count 3.93 M/mcL (4.19-5.50); Red Cell Distribution Width 15.9 % (11.5-14.5); Segmented Neutrophils % 85.4 %
[2017-12-18 04:37] LABS: BUN/Creatinine Ratio 13 (6-26); Blood Urea Nitrogen 11 mg/dL (8-23); Calcium 7.8 mg/dL (8.6-10.3); Carbon Dioxide 24 mEq/L (23-29); Chloride 108 mEq/L (98-107); Glucose 142 mg/dL (70-105); Osmolality,Calculated 292 (280-300); Sodium 140 mEq/L (136-145); eGFR For African Americans > 60 (> 60); eGFR For Non-African Americans > 60 (> 60)
[2017-12-18] MEDS: Levofloxacin 750 MG/150 ML 750 MG/150 ML BAG IVPB SCH (08:26)
--- NOTE | 2017-12-18 11:15 | General Surgery Progress Note ---
<Christophe Duvall - Last Filed: 12/18/17 11:56> Date of Encounter: 12/18/17 Time of Encounter: 10:50 - Assessment and Plan (1) Acute appendicitis Current Visit: Yes Status: Resolved POD #1 laproscopic ileocetomy Patient seems to be doing well. Abdominal pain from incisions has decreased since yesterday. Patient able to handle clear liquid diets. Has been passing gas but no bowel movement yet. Vitals stable. Patient afebrile overnight. White blood cell count decreased from 11.7 down to 9.2. Creatinine at 0.84. By mouth intake of 1100 mL. Urine catheter output of 1200 mL. - Adequate PO intake; discontinue IV fluids. - Remove styles. - Start Flomax 0.4 mg PO qd - Day #3 Levaquin and Flagyl; continue antibiotics. - Advance to full liquid diet for lunch. If able to tolerate, advance to soft diet for dinner - continue supportive care and discomfort management - PRN Percocet - PRN sublingual oxycodone (for moderate and severe pain) - aggressive pulmonary toileting - continue G.I. and DVT prophylaxis - out of bed to chair for all trays - ambulate and halls at least TID; if patient is unable to get out of bed with assistance can consult PT/OT to eval and treat. - continue to monitor I/O's. Qualifiers: Acute appendicitis type: unspecified acute appendicitis type Qualified Code (s): K35.80 - Unspecified acute appendicitis (2) Smoking history Current Visit: Yes Status: Acute Smoking cessation advised aggressive pulmonary toileting scheduled respiratory treatments titrate oxygen to keep stats greater than 92% (3) Renal mass Current Visit: Yes Status: Acute Per urology, patient's right renal mass is concerning for renal cell carcinoma. Based on CT criteria this has roughly an 80% chance of being a malignant mass. Patient scheduled for follow-up with Dr. Benjamin in [place] in 1-2 weeks. Patient may require either right nephrectomy or right partial nephrectomy. Patient is scheduled January 01 at 1 PM in office in [place]. Retroperitoneum Ultrasound 12/16/17 13:30 IMPRESSION: Solid right lower pole renal lesion measuring up to 3.4 cm, renal cell carcinoma until proven otherwise. D/ / 12/16/2017 14:10:35 Azael Block MD / salomón Interpreting Provider: Azael Block MD Abdomen/Pelvis CT 12/17/17 11:00 IMPRESSION: Postsurgical changes related to recent appendectomy, with a small amount of intra-abdominal fluid and free air related to the postoperative status. Mild inflammatory stranding is seen surrounding the common bile duct and along the inferior margin of the right hepatic lobe. This stranding may be postoperative in nature, though recommend correlation for possible biliary obstruction and cholangitis. The patient has an indwelling common bile duct stent, which in 2015 across the ampulla, though retracted over the last few years and now lies completely within the common bile duct and intrahepatic duct on the right. On several recent CT examinations however, this has been noted to be only within the duct and not in the bowel. There is a right renal mass measuring 3.6 x 2.8 x 2.8 cm arising from the lower pole, which demonstrates postcontrast enhancement compared to the noncontrast CT study the prior day. This is felt to represent renal cell carcinoma. Interval development of bibasilar airspace disease, which could be related to atelectasis. Aspiration would be in the differential however. Trace right pleural effusion. D/ / Alan Hull MD / Alan Hull MD Interpreting Provider: Alan Hull MD (4) ASHD (arteriosclerotic heart disease) Current Visit: Yes Status: Acute Cardiology is following. He was moderate risk for urgent procedure. Per cardiology note ideally further noninvasive testing would be recommended. Will follow-up with cardiology to see if they plan to complete this testing during this hospital admission i.e. echocardiogram. BNP was slightly elevated on admission; will closely monitor fluid status (5) Productive cough Current Visit: Yes Status: Acute CXR 12/16/2017 nonacute continue aggressive pulmonary toileting and supplemental oxygen therapy (6) DVT prophylaxis Current Visit: Yes Status: Acute - Lovenox 40 mg SQ qd. Subjective Narrative: Patient says the pain over his incision in mid hypogastric region has improved since yesterday. He denies any nausea or vomiting. No bowel movement yet but has been able to pass gas. He says he has been able to handle clear liquids diet. Patient has been able to walk around. Denies any chest pain or shortness of breath. Denies any fever or chills. Objective VITAL SIGNS: Reviewed. See [facility] GENERAL: no apparent distress. HEENT: [Normocephalic, PER, EOMI, oropharynx pink/moist, no JVD noted.] CV: b/l rad pulses 2+, RRR, bradycardia great, first-degree AV block noted, 3/6 systolic ejection murmur at the right sternal border noted. No gallops or rubs. No JVD. RESPIRATORY: CTAB without wheezes, rales, or rhonchi ABD: soft, non-tender, no rebound/guarding/rigidity, no peritoneal signs. Mormal bowel sounds. INCISION: Three incisions in RLQ and LLQ and epigastric regions. Midline incision in hypogastric region. All incisions clean, dry, intact without purulence/bleeding/edema/rubor/calor EXTREMITY: grossly normal motor function, no pedal edema, peripheral pulses 2+ b /l. Severe onchymycosis on feet b/l. Normal pedal capillary refill b/l. Patient wearing compression stalkings on both legs. NEUROLOGIC EXAM: AOx3, obeys commands, no speech deficits. PSYCHIATRIC: normal mood and affect SKIN: no gross lesions, rashes, or skin changes Vital Signs - Last 8 Hours Temp Pulse Resp BP Pulse Ox 12/18/17 10:44 97.8 F 60 19 108/66 98 12/18/17 08:30 97 12/18/17 07:35 18 97 12/18/17 07:04 98.1 F 54 20 126/94 95 12/18/17 03:59 18 93 12/18/17 03:50 97.8 F 61 16 112/71 92 Intake and Output 12/17/17 12/18/17 12/18/17 23:59 07:59 15:59 Intake Total 1070 / 1070 1000 / 1000 100 / 100 Output Total 900 / 900 1200 / 1200 0 / 0 Balance 170 / 170 -200 / -200 100 / 100 Intake: IV Fluids 100 / 100 1000 / 1000 100 / 100 0.9 % Sodium Chloride 1,000 ML 1000 / 1000 @ 75 mls/hr IVC .[id number] [facility] Rx #:[id number] Flagyl Premix 500 MG/100 ML 500 100 / 100 100 / 100 mg In 100 ml @ 100 mls/hr IVPB Q8H [facility] Rx#:[id number] Oral 970 / 970 0 / 0 Output: Urine 0 / 0 0 / 0 Catheter 900 / 900 1200 / 1200 Other: Weight 125.7 kg Blood Glucose* 140 110 105 Patient Weight 12/18/17 23:59 Weight 125.7 kg - Labs 12/18/17 03:59 12/18/17 03:59 Diabetes panel 12/18/17 Range/Units 03:59 Sodium 140 (136-145) mEq/L Potassium 4.0 (3.5-5.1) mEq/L Chloride 108 H (98-107) mEq/L Carbon Dioxide 24 (23-29) mEq/L BUN 11 (8-23) mg/dL Creatinine 0.84 (0.70-1.30) mg/dL Glucose 142 H (70-105) mg/dL Calcium 7.8 L (8.6-10.3) mg/dL Calcium panel 12/18/17 Range/Units 03:59 Calcium 7.8 L (8.6-10.3) mg/dL Pituitary panel 12/18/17 Range/Units 03:59 Sodium 140 (136-145) mEq/L Potassium 4.0 (3.5-5.1) mEq/L Chloride 108 H (98-107) mEq/L Carbon Dioxide 24 (23-29) mEq/L BUN 11 (8-23) mg/dL Creatinine 0.84 (0.70-1.30) mg/dL Glucose 142 H (70-105) mg/dL Calcium 7.8 L (8.6-10.3) mg/dL Adrenal panel 12/18/17 Range/Units 03:59 Sodium 140 (136-145) mEq/L Potassium 4.0 (3.5-5.1) mEq/L Chloride 108 H (98-107) mEq/L Carbon Dioxide 24 (23-29) mEq/L BUN 11 (8-23) mg/dL Creatinine 0.84 (0.70-1.30) mg/dL Glucose 142 H (70-105) mg/dL Calcium 7.8 L (8.6-10.3) mg/dL - VTE Documentation of Mechanical Device: Intermittent pneumatic compression device Consult Discharge Plan - Plan Referrals: Renetta Nolen, SIMONIZER [Advanced Practice Nurse] - 12/25/17 1:00 pm <Barry Chew - Last Filed: 12/18/17 18:15> Date of Encounter: 12/18/17 Subjective Patient reports: no new complaints, feels better, still having pain, pain is less, tolerating liquids well, flatus, afebrile Objective Vital Signs - Last 8 Hours Temp Pulse Resp BP Pulse Ox 12/18/17 16:32 97.9 F 65 20 122/62 97 12/18/17 11:17 18 98 12/18/17 10:44 97.8 F 60 19 108/66 98 Intake and Output 12/18/17 12/18/17 12/18/17 07:59 15:59 23:59 Intake Total 1000 / 1000 950 / 950 Output Total 1200 / 1200 0 / 0 400 / 400 Balance -200 / -200 950 / 950 -400 / -400 Intake: IV Fluids 1000 / 1000 350 / 350 0.9 % Sodium Chloride 1,000 ML 1000 / 1000 @ 75 mls/hr IVC .[id number] [facility] Rx #:[id number] Levaquin Premix 750mg/150 mL 150 / 150 750 mg In 150 ml @ 100 mls/hr IVPB DAILY [facility] Rx#:[id number] Flagyl Premix 500 MG/100 ML 500 200 / 200 mg In 100 ml @ 100 mls/hr IVPB Q8H [facility] Rx#:[id number] Oral 600 / 600 Output: Urine 0 / 0 400 / 400 Catheter 1200 / 1200 Other: Meal Lunch Percent of Meal Consumed 100% Weight 125.7 kg Blood Glucose* 110 105 116 Patient Weight 12/18/17 23:59 Weight 125.7 kg - Labs 12/18/17 03:59 12/18/17 03:59 Diabetes panel 12/18/17 Range/Units 03:59 Sodium 140 (136-145) mEq/L Potassium 4.0 (3.5-5.1) mEq/L Chloride 108 H (98-107) mEq/L Carbon Dioxide 24 (23-29) mEq/L BUN 11 (8-23) mg/dL Creatinine 0.84 (0.70-1.30) mg/dL Glucose 142 H (70-105) mg/dL Calcium 7.8 L (8.6-10.3) mg/dL Calcium panel 12/18/17 Range/Units 03:59 Calcium 7.8 L (8.6-10.3) mg/dL Pituitary panel 12/18/17 Range/Units 03:59 Sodium 140 (136-145) mEq/L Potassium 4.0 (3.5-5.1) mEq/L Chloride 108 H (98-107) mEq/L Carbon Dioxide 24 (23-29) mEq/L BUN 11 (8-23) mg/dL Creatinine 0.84 (0.70-1.30) mg/dL Glucose 142 H (70-105) mg/dL Calcium 7.8 L (8.6-10.3) mg/dL Adrenal panel 12/18/17 Range/Units 03:59 Sodium 140 (136-145) mEq/L Potassium 4.0 (3.5-5.1) mEq/L Chloride 108 H (98-107) mEq/L Carbon Dioxide 24 (23-29) mEq/L BUN 11 (8-23) mg/dL Creatinine 0.84 (0.70-1.30) mg/dL Glucose 142 H (70-105) mg/dL Calcium 7.8 L (8.6-10.3) mg/dL - Attending Attestation I have personally seen and examined the patient. I have reviewed pertinent labs , imaging, progress notes, including this one. I agree with the above assessment and plan and wish to include the following... 67M POD #1 s/p lap ileocectomy 2/2 acute appendicitis; appendix necrotic to the base, significantly adhere to cecum; pain controlled; ambulating; sitting up in chair; flatus; appropriately tender, soft, abdomen; incisions are clean, dry and intact; okay for soft diet for dinner; d/c styles; SLIV when tolerating PO; plan for d/c in AM if continuing to do well
[2017-12-18 11:48] LABS: Bilirubin,Urine Negative (Negative); Blood,Urine Large (Negative); Clarity,Urine Clear (Clear); Color,Urine Dark Yellow (Yellow); Glucose,Urine (UA) Normal (Normal); Ketones,Urine Negative (Negative); Leukocyte Esterase,Urine Trace (Negative); Nitrite,Urine Negative (Negative); Protein,Urine Trace mg/dL (Neg-Trace); Specific Gravity,Urine 1.014 (1.010-1.025); Urobilinogen,Urine Normal (Normal)
[2017-12-18 11:51] LABS: Bacteria,Urine None Seen per hpf (None-Few); Hyaline Casts,Urine None Seen per lpf (None-Few); RBC,Urine TNTC per hpf (0-3); Squamous Epithelial Cell,Urine Few per lpf (None-Few)
[2017-12-19] MEDS: Insulin LISPRO 300 UNITS/3 ML VIAL SQ SCH ×3 (00:35→12:51)
[2017-12-19] MEDS: MetroNIDAZOLE 500 MG/100 ML 500 MG/100 ML BAG IVPB SCH ×2 (03:55→12:50)
[2017-12-19] MEDS: Ipratropium/Albuterol Neb 3 ML IH SCH ×4 (04:08→16:01)
[2017-12-19] MEDS: Pantoprazole 40 MG VIAL IVP SCH (05:33)
[2017-12-19] MEDS: *HR* Enoxaparin 40 MG/0.4 ML SYRINGE SQ SCH (05:33)
[2017-12-19 10:33] VITALS: BP 107/63
--- NOTE | 2017-12-19 11:01 | General Surgery Progress Note ---
Date of Encounter: 12/19/17 Time of Encounter: 08:00 - Assessment and Plan (1) Acute appendicitis Current Visit: Yes Status: Resolved POD #2 laproscopic ileocetomy Patient seems to be doing well. Abdominal pain from incisions has decreased since yesterday. Patient able to handle clear liquid diets. Has been passing gas but no bowel movement yet. Vitals stable. Patient afebrile overnight. By mouth intake of 2640 yesterday mL and 440 today so far. Urine output of 400 ml today so far. - Adequate PO intake - Continue Flomax 0.4 mg PO qd - Day #4 Levaquin and Flagyl; continue antibiotics. - On soft diet - continue supportive care and discomfort management - PRN Percocet - PRN sublingual oxycodone (for moderate and severe pain) - aggressive pulmonary toileting - continue G.I. and DVT prophylaxis - out of bed to chair for all trays - ambulate and halls at least TID; if patient is unable to get out of bed with assistance can consult PT/OT to eval and treat. - continue to monitor I/O's. Qualifiers: Acute appendicitis type: unspecified acute appendicitis type Qualified Code (s): K35.80 - Unspecified acute appendicitis (2) Smoking history Current Visit: Yes Status: Acute Smoking cessation advised aggressive pulmonary toileting scheduled respiratory treatments titrate oxygen to keep stats greater than 92% (3) Renal mass Current Visit: Yes Status: Acute Per urology, patient's right renal mass is concerning for renal cell carcinoma. Based on CT criteria this has roughly an 80% chance of being a malignant mass. Patient scheduled for follow-up with Dr. Benjamin in [place] in 1-2 weeks. Patient may require either right nephrectomy or right partial nephrectomy. Patient is scheduled January 01 at 1 PM in office in [place]. Retroperitoneum Ultrasound 12/16/17 13:30 IMPRESSION: Solid right lower pole renal lesion measuring up to 3.4 cm, renal cell carcinoma until proven otherwise. D/ / 12/16/2017 14:10:35 Azael Block MD / salomnó Interpreting Provider: Azael Block MD Abdomen/Pelvis CT 12/17/17 11:00 IMPRESSION: Postsurgical changes related to recent appendectomy, with a small amount of intra-abdominal fluid and free air related to the postoperative status. Mild inflammatory stranding is seen surrounding the common bile duct and along the inferior margin of the right hepatic lobe. This stranding may be postoperative in nature, though recommend correlation for possible biliary obstruction and cholangitis. The patient has an indwelling common bile duct stent, which in 2015 across the ampulla, though retracted over the last few years and now lies completely within the common bile duct and intrahepatic duct on the right. On several recent CT examinations however, this has been noted to be only within the duct and not in the bowel. There is a right renal mass measuring 3.6 x 2.8 x 2.8 cm arising from the lower pole, which demonstrates postcontrast enhancement compared to the noncontrast CT study the prior day. This is felt to represent renal cell carcinoma. Interval development of bibasilar airspace disease, which could be related to atelectasis. Aspiration would be in the differential however. Trace right pleural effusion. D/ / Alan Hull MD / Alan Hull MD Interpreting Provider: Alan Hull MD (4) ASHD (arteriosclerotic heart disease) Current Visit: Yes Status: Acute Cardiology is following. He was moderate risk for urgent procedure. Per cardiology note ideally further noninvasive testing would be recommended. Will follow-up with cardiology to see if they plan to complete this testing during this hospital admission i.e. echocardiogram. BNP was slightly elevated on admission; will closely monitor fluid status (5) Productive cough Current Visit: Yes Status: Acute CXR 12/16/2017 non-acute continue aggressive pulmonary toileting and supplemental oxygen therapy (6) DVT prophylaxis Current Visit: Yes Status: Acute - Lovenox 40 mg SQ qd. Subjective Narrative: Patient says his abdominal pain has improved from yesterday. He says that he has been able to handle to soft diet last night. Denies any nausea or vomiting. Denies any chest pain or shortness of breath. Denies any fever or chills. Denies any dysuria or hematuria. No bowel movement yet but has been able to pass gas. Objective VITAL SIGNS: Reviewed. See [facility] GENERAL: No apparent distress. HEENT: [Normocephalic, PER, EOMi, oropharynx pink/moist, no JVD noted.] CV: b/l rad pulses 2+, RRR, no murmurs or gallops, no JVD RESPIRATORY: CTAB without wheezes, rales, or rhonchi ABD: soft, mild diffuse abdominal pain with deep palpation, no rebound/guarding/ rigidity, no peritoneal signs. Normal bowel sounds present. INCISION: clean, dry, minor serosanguineous drainage on bandages that were removed, intact without purulence/bleeding/edema/rubor/calor EXTREMITY: grossly normal motor function, no pedal edema, peripheral pulses 2+ b /l NEUROLOGIC EXAM: AOx3, obeys commands, no speech deficits. PSYCHIATRIC: normal mood and affect SKIN: no gross lesions, rashes, or skin changes Vital Signs - Last 8 Hours Temp Pulse Resp BP Pulse Ox 12/19/17 10:25 97.6 F 67 16 107/63 93 12/19/17 07:14 98.5 F 66 15 106/65 94 12/19/17 04:10 18 93 12/19/17 03:58 98.1 F 71 18 110/58 94 Intake and Output 12/18/17 12/19/17 12/19/17 23:59 07:59 15:59 Intake Total 690 / 690 440 / 440 480 / 480 Output Total 400 / 400 0 / 0 275 / 275 Balance 290 / 290 440 / 440 205 / 205 Intake: IV Fluids 100 / 100 Flagyl Premix 500 MG/100 ML 500 100 / 100 mg In 100 ml @ 100 mls/hr IVPB Q8H [facility] Rx#:[id number] Oral 590 / 590 440 / 440 480 / 480 Output: Urine 400 / 400 0 / 0 275 / 275 Other: Meal Dinner Breakfast Percent of Meal Consumed 80% 100% # Voids 2 1 Weight 124.466 kg 124.466 kg Blood Glucose* 116 100 Patient Weight 12/19/17 23:59 Weight 124.466 kg - Labs 12/18/17 03:59 12/18/17 03:59 - VTE Documentation of Mechanical Device: Graduated compression elastic hosiery Consult Discharge Plan - Plan Referrals: Rakesh Benjamin MD [Partnered Physician] - 01/01/18 1:00 pm Renetta Nolen CNP [Advanced Practice Nurse] - 12/25/17 1:00 pm
[2017-12-19] MEDS: Levofloxacin 750 MG/150 ML 750 MG/150 ML BAG IVPB SCH (11:03)
--- NOTE | 2017-12-19 15:43 | Discharge Summary ---
<Christophe Duvall - Last Filed: 12/19/17 15:41> Orders not resulted at time of discharge: Pending orders 12/17/17 00:58 Surgical Pathology [PTH] Routine 12/18/17 11:41 Culture,Urine [RM] Stat Date of Encounter: 12/19/17 Time of Encounter: 08:00 - Discharge Diagnosis (1) Acute appendicitis Priority: Primary Status: Resolved Qualifiers: Acute appendicitis type: unspecified acute appendicitis type Qualified Code (s): K35.80 - Unspecified acute appendicitis (2) Smoking history Priority: Secondary Status: Acute (3) Renal mass Priority: Secondary Status: Acute (4) ASHD (arteriosclerotic heart disease) Priority: Secondary Status: Acute (5) Productive cough Priority: Secondary Status: Acute (6) DVT prophylaxis Priority: Primary Status: Acute General Surgery Exam VITAL SIGNS: Reviewed. See [facility] GENERAL: no apparent distress. HEENT: [Normocephalic, PER, EOMI, oropharynx pink/moist, no JVD noted.] CV: b/l rad pulses 2+, RRR, bradycardia great, first-degree AV block noted, 3/6 systolic ejection murmur at the right sternal border noted. No gallops or rubs. No JVD. RESPIRATORY: CTAB without wheezes, rales, or rhonchi ABD: soft, non-tender, no rebound/guarding/rigidity, no peritoneal signs. Mormal bowel sounds. INCISION: Three incisions in RLQ and LLQ and epigastric regions. Midline incision in hypogastric region. All incisions clean, dry, intact without purulence/bleeding/edema/rubor/calor EXTREMITY: grossly normal motor function, no pedal edema, peripheral pulses 2+ b /l. Severe onchymycosis on feet b/l. Normal pedal capillary refill b/l. Patient wearing compression stalkings on both legs. NEUROLOGIC EXAM: AOx3, obeys commands, no speech deficits. PSYCHIATRIC: normal mood and affect SKIN: no gross lesions, rashes, or skin changes Initial Vital Signs Temp Pulse Resp BP Pulse Ox 97.6 F 55 18 147/81 92 12/16/17 04:20 12/16/17 04:20 12/16/17 04:20 12/16/17 04:20 12/16/17 04:20 - Hospital Course Hospital course: Mr. Rodriguez is a 67 year old male who has a past medical history of HTN, [place] ( unknown timing or location), DM, CKD, smoking 1ppd for 40 years, and a surgical history of cholecystectomy that presented on 12/16/17 for periumbilical discomfort. laboratory studies which revealed a normal white blood cell count, mildly elevated lipase at 100, normal liver function, normal creatinine, elevated glucose, a CT of the abdomen and pelvis with no IV or oral contrast revealed mildly dilated appendix, mild periappendiceal fat stranding, no free air or fluid. He was diagnosed with acute appendicitis and taken to the OR on with a laparoscopic ileocetomy performed. Afterwards he was put on a clear liquid diet and started on IV levaquin and flagyl. Incidently, a right renal mass measuring 3.6 x 2.8 x 2.8 cm was found on abdominal CT exam. Urology was consulted and Per urology, patient's right renal mass is concerning for renal cell carcinoma. Based on CT criteria this has roughly an 80% chance of being a malignant mass. Patient scheduled for follow-up with Dr. Benjamin in [place] in 1-2 weeks. Patient may require either right nephrectomy or right partial nephrectomy. Patient is scheduled January 01 at 1 PM in office in [place]. Patient was transitioned to soft diet yesterday and was able to tolerate. Patient will be discharged home today. Patient was warned that if he suddenly develops a fever, nausea, voiting, abdominal pain, constipation, or blood in stool or dark tarry stools to contact PCP and report to the ER. Patient will need to follw-up with our surgery clinic within 2 weeks. - Time Spent with Patient Total time spent providing and/or coordinating discharge services: Less than 30 minutes - Discharge Medications Prescriptions: OxyCODONE/APAP 10/325 [Percocet 10/325 MG] 1 each PO Q6HR PRN 5 Days #30 tablet PRN Reason: Pain Docusate [Colace] 100 mg PO BID #30 capsule levoFLOXacin [Levaquin] 750 mg PO DAILY 7 Days #7 tablet metroNIDAZOLE [Flagyl] 500 mg PO TID 7 Days #21 tablet Home Medications: Aspirin 325 mg PO DAILY 12/16/17 [History] Docusate [Colace] 100 mg PO BID #30 capsule 12/19/17 [Rx] OxyCODONE/APAP 10/325 [Percocet 10/325 MG] 1 each PO Q6HR PRN 5 Days #30 tablet 12/19/17 [Rx] levoFLOXacin [Levaquin] 750 mg PO DAILY 7 Days #7 tablet 12/19/17 [Rx] metroNIDAZOLE [Flagyl] 500 mg PO TID 7 Days #21 tablet 12/19/17 [Rx] Allergies/Adverse Reactions: 3 Allergy/AdvReac Type Severity Reaction Status Date / Time Penicillins Allergy Hives Verified 12/16/17 09:22 Date of admission: 12/17/17 06:01 Primary care physician: PCP NONE Consults: 12/16/17 10:24 Consult to Respiratory Therapy [CONS] Stat Reason for Consult: aggressive pulmonary toileting; preop Hx COPD Time Notified: 10:24 Call Completed: Yes 12/16/17 10:37 Consult to Cardiology [CONS] Stat Comment: Consulting Provider: Cardiology Alexander Reason for Consult: Preoperative risk stratification and to establish care in the setting of hx of [place] (spoke with Dr. Felipe) Time Notified: 10:38 Call Completed: Yes 12/17/17 13:57 Consult to Urology [CONS] Routine Consulting Provider: Urology Shantell Reason for Consult: Renal cell carcinoma; spoke with Dr. Meng. Time Notified: 13:57 Call Completed: Yes Discharging clinician: Christophe Duvall Anticipated date of discharge: 12/19/17 Labs on day of discharge: Labs from last 24 hours 12/19/17 12/18/17 12/18/17 00:33 16:30 10:46 POC Glucose 105 H 116 H 105 H Preliminary micro results at discharge 12/18/17 11:41 Urine Culture - Preliminary Urine,Clean Catch No growth. - Impressions ITS Impressions Chest X-Ray 12/16/17 10:22 IMPRESSION: No acute process. D/ / Trent Myles MD / Trent Myles MD Interpreting Provider: Trent Myles MD Retroperitoneum Ultrasound 12/16/17 13:30 IMPRESSION: Solid right lower pole renal lesion measuring up to 3.4 cm, renal cell carcinoma until proven otherwise. D/ / 12/16/2017 14:10:35 Azael Block MD / salomón Interpreting Provider: Azael Block MD Echocardiogram 12/17/17 09:42 Impressions: LVEF 60-65%. Normal LV chamber size, wall thickness and function. Indeterminate diastolic function. Normal right ventricular structure and function. Moderately calcified aortic valve leaflets. Moderate aortic stenosis. Mean gradient 23 mmHg. Peak velocity 3.04 m/s. Mild pulmonary hypertension. Left Ventricular Wall Motion: Rest Echo Findings All wall segments showed normal motion. Findings: Study Quality * Technically adequate exam. ECG Findings * Normal sinus rhythm. Left Ventricle * LVEF 60-65%. * Normal LV chamber size, wall thickness and function. * Indeterminate diastolic function. Right Ventricle * Normal right ventricular structure and function. Left Atrium * Moderately dilated left atrium. Right Atrium * Mildly dilated right atrium. Aortic Valve * Trileaflet aortic valve. * Moderately calcified aortic valve leaflets. * No aortic regurgitation. * Moderate aortic stenosis. Mean gradient 23 mmHg. Peak velocity 3.04 m/s. Mitral Valve * Mild mitral annular calcification * No mitral regurgitation. * No mitral stenosis. Tricuspid Valve * Normal tricuspid valve structure and function. * Trace tricuspid regurgitation. * Borderline mild pulmonary hypertension. Pulmonic Valve * Normal pulmonic valve structure and function. * No pulmonic regurgitation. Aorta * Normally sized aortic root. Pericardium * The pericardium appears normal. IVC * Normal IVC dimensions and inspiratory collapse. Pulmonary Artery * Normal visualized portions of the main pulmonary artery. Abdomen/Pelvis CT 12/17/17 11:00 IMPRESSION: Postsurgical changes related to recent appendectomy, with a small amount of intra-abdominal fluid and free air related to the postoperative status. Mild inflammatory stranding is seen surrounding the common bile duct and along the inferior margin of the right hepatic lobe. This stranding may be postoperative in nature, though recommend correlation for possible biliary obstruction and cholangitis. The patient has an indwelling common bile duct stent, which in 2015 across the ampulla, though retracted over the last few years and now lies completely within the common bile duct and intrahepatic duct on the right. On several recent CT examinations however, this has been noted to be only within the duct and not in the bowel. There is a right renal mass measuring 3.6 x 2.8 x 2.8 cm arising from the lower pole, which demonstrates postcontrast enhancement compared to the noncontrast CT study the prior day. This is felt to represent renal cell carcinoma. Interval development of bibasilar airspace disease, which could be related to atelectasis. Aspiration would be in the differential however. Trace right pleural effusion. D/ / Alan Hull MD / Alan Hull MD Interpreting Provider: Alan Hull MD - Patient Status Disposition: Home, Self-Care Condition: Fair Overall status at discharge: patient is progressing back to baseline - Discharge Instructions Instructions: Laparoscopic Appendectomy (DC) Follow Up With: Rakesh Benjamin MD [Partnered Physician] - 01/01/18 1:00 pm Renetta Nolen CNP [Advanced Practice Nurse] - 12/25/17 1:00 pm Barry Chew MD [Non-Partnered Physician] - (two weeks for post op check) Additional Instructions: Call your doctor right away if you have any of the following: Swelling, oozing, increased pain, or unusual redness around the incision Fever of 100.4?F or higher Increasing abdominal pain Severe diarrhea, bloating, or constipation Nausea or vomiting If you had general anesthesia, don't operate machinery or power tools, drink alcohol, or make major decisions for at least the first 24 hours. Gradually increase activity level to help with your recovery. Start by doing light activities around your home once you feel able to do so. Don't drive until you are no longer taking prescription pain medication. Don't lift anything heavier than 10 pounds until your doctor says it's okay. Limit sports and strenuous activities for 1 or 2 weeks. Incision Care Wear loose-fitting clothes. This will help you be more comfortable and cause less irritation around your incision. Shower as usual. Gently wash around your incision with soap and water. Don't bathe or soak in a tub or swim in a pool until your incisions are well healed. Leave the Steri-Strips (little white strips of tape) in place for 10 days. Drink 6 to 8 glasses of water a day, unless directed otherwise. Take a fiber-based laxative, such as Metamucil, if you are constipated. Eat a bland, low-fat diet, such as the following: Mashed potatoes Plain toast or bread, crackers Soup Plain spaghetti Rice Macaroni (plain or with cheese) Cottage cheese Pudding Low-fat yogurt Low-fat milk Canned fruit (except pineapple) Very ripe bananas - Diet and Activity Activity: increase activity as tolerated Diet: low fat, low cholesterol, low salt diet <Meena Woo - Last Filed: 12/19/17 16:13> Orders not resulted at time of discharge: Pending orders 12/17/17 00:58 Surgical Pathology [PTH] Routine 12/18/17 11:41 Culture,Urine [RM] Stat Date of Encounter: 12/19/17 - Discharge Diagnosis (1) S/P colectomy Priority: Secondary Status: Acute (2) Acute appendicitis Priority: Primary Status: Resolved Qualifiers: Acute appendicitis type: unspecified acute appendicitis type Qualified Code (s): K35.80 - Unspecified acute appendicitis General Surgery Exam Initial Vital Signs Temp Pulse Resp BP Pulse Ox 97.6 F 55 18 147/81 92 12/16/17 04:20 12/16/17 04:20 12/16/17 04:20 12/16/17 04:20 12/16/17 04:20 - General physical appearance well developed, well nourished, no distress - ENT normal mucosa, normocephalic - Respiratory normal expansion, normal respiratory effort - Cardiovascular Cardiovascular exam: Present: RRR - Abdomen Abdomen general surgery: Present: bowel sounds present, soft, tender (expected post op tenderness). Absent: guarding, rebound - Incision Incision: Present: clean and dry, intact - Integumentary Integumentary general surgery: Present: warm and dry - Neurologic Present: CN 2-12 grossly intact - Musculoskeletal Present: normal posture - Psychiatric Psychiatric general surgery: Present: A&Ox3, speech is normal - Hospital Course Hospital course: Mr. Rodriguez is a 67 year old male - Time Spent with Patient Total time spent providing and/or coordinating discharge services: Date of admission: 12/17/17 06:01 Primary care physician: PCP NONE Consults: 12/16/17 10:24 Consult to Respiratory Therapy [CONS] Stat Reason for Consult: aggressive pulmonary toileting; preop Hx COPD Time Notified: 10:24 Call Completed: Yes 12/16/17 10:37 Consult to Cardiology [CONS] Stat Comment: Consulting Provider: Cardiology Shantell Reason for Consult: Preoperative risk stratification and to establish care in the setting of hx of [place] (spoke with Dr. Felipe) Time Notified: 10:38 Call Completed: Yes 12/17/17 13:57 Consult to Urology [CONS] Routine Consulting Provider: Urology Shantell Reason for Consult: Renal cell carcinoma; spoke with Dr. Meng. Time Notified: 13:57 Call Completed: Yes Labs on day of discharge: Labs from last 24 hours 12/19/17 12/18/17 12/18/17 00:33 16:30 10:46 POC Glucose 105 H 116 H 105 H Preliminary micro results at discharge 12/18/17 11:41 Urine Culture - Preliminary Urine,Clean Catch No growth. - Impressions ITS Impressions Chest X-Ray 12/16/17 10:22 IMPRESSION: No acute process. D/ / Trent Myles MD / Trent Myles MD Interpreting Provider: Trent Myles MD Retroperitoneum Ultrasound 12/16/17 13:30 IMPRESSION: Solid right lower pole renal lesion measuring up to 3.4 cm, renal cell carcinoma until proven otherwise. D/ / 12/16/2017 14:10:35 Azael Block MD / salomón Interpreting Provider: Azael Block MD Echocardiogram 12/17/17 09:42 Impressions: LVEF 60-65%. Normal LV chamber size, wall thickness and function. Indeterminate diastolic function. Normal right ventricular structure and function. Moderately calcified aortic valve leaflets. Moderate aortic stenosis. Mean gradient 23 mmHg. Peak velocity 3.04 m/s. Mild pulmonary hypertension. Left Ventricular Wall Motion: Rest Echo Findings All wall segments showed normal motion. Findings: Study Quality * Technically adequate exam. ECG Findings * Normal sinus rhythm. Left Ventricle * LVEF 60-65%. * Normal LV chamber size, wall thickness and function. * Indeterminate diastolic function. Right Ventricle * Normal right ventricular structure and function. Left Atrium * Moderately dilated left atrium. Right Atrium * Mildly dilated right atrium. Aortic Valve * Trileaflet aortic valve. * Moderately calcified aortic valve leaflets. * No aortic regurgitation. * Moderate aortic stenosis. Mean gradient 23 mmHg. Peak velocity 3.04 m/s. Mitral Valve * Mild mitral annular calcification * No mitral regurgitation. * No mitral stenosis. Tricuspid Valve * Normal tricuspid valve structure and function. * Trace tricuspid regurgitation. * Borderline mild pulmonary hypertension. Pulmonic Valve * Normal pulmonic valve structure and function. * No pulmonic regurgitation. Aorta * Normally sized aortic root. Pericardium * The pericardium appears normal. IVC * Normal IVC dimensions and inspiratory collapse. Pulmonary Artery * Normal visualized portions of the main pulmonary artery. Abdomen/Pelvis CT 12/17/17 11:00 IMPRESSION: Postsurgical changes related to recent appendectomy, with a small amount of intra-abdominal fluid and free air related to the postoperative status. Mild inflammatory stranding is seen surrounding the common bile duct and along the inferior margin of the right hepatic lobe. This stranding may be postoperative in nature, though recommend correlation for possible biliary obstruction and cholangitis. The patient has an indwelling common bile duct stent, which in 2015 across the ampulla, though retracted over the last few years and now lies completely within the common bile duct and intrahepatic duct on the right. On several recent CT examinations however, this has been noted to be only within the duct and not in the bowel. There is a right renal mass measuring 3.6 x 2.8 x 2.8 cm arising from the lower pole, which demonstrates postcontrast enhancement compared to the noncontrast CT study the prior day. This is felt to represent renal cell carcinoma. Interval development of bibasilar airspace disease, which could be related to atelectasis. Aspiration would be in the differential however. Trace right pleural effusion. D/ / Alan Hull MD / Alan Hull MD Interpreting Provider: Alan Hull MD - Patient Status Overall status at discharge: patient is progressing back to baseline - Diet and Activity Activity: increase activity as tolerated - Attending Attestation I examined this patient and my medical decision-making was reviewed with the Resident Physician. I agree with the documented findings, disposition and treatment plan as described except to the extent set forth below.
== END 2017-12-19 17:15 | disposition home or self-care (01) | DRG 231 ==
LOC: 3BNU → 2NNU 12-17 06:00 → 3ANU 12-18 19:44
PROVIDERS: ADMIT Surgery; ATTEND Surgery